=== PATIENT | male | born 1955 | race Caucasian/White ===

== ENCOUNTER 2017-05-01 13:10 | Inpatient (IN) | payer MEDICAID, MEDICARE, OTHER ==
[~2017-05-01] VITALS: Ht 175.3 cm; Wt 89.2 kg
[2017-05-01] MEDS ORDERED: TRAD5TAB PO (13:29)
[2017-05-01] MEDS ORDERED: METF500T4 PO (13:29)
[2017-05-01] MEDS ORDERED: VALS1TAB47 PO (13:29)
[2017-05-01] MEDS ORDERED: HYDR-3716 PO (13:29)
[2017-05-01] MEDS ORDERED: CRES20TA PO (13:29)
[2017-05-01] MEDS ORDERED: CYCL10TA PO (13:29)
[2017-05-01] MEDS ORDERED: TAMSULOSIN (13:29)
[2017-05-01] MEDS ORDERED: MORPHINE 4 MG/ML 1ML SYRINGE As Ordered ONE ×2 (13:57→16:58)
[2017-05-01] MEDS ORDERED: ONDANSETRON 4MG/2ML VIAL (J2405) IV ONE (14:00)
[2017-05-01] MEDS ORDERED: NS 1,000 ML IV ONE (14:00)
[2017-05-01] MEDS: MORPHINE 4 MG/ML 1ML SYRINGE IV PRN ×4 (14:02→19:01)
[2017-05-01 14:19] LABS: BASO % 0.2 % (0.0-1.0); EOS # 0.1 10^3/uL (0.0-0.50); EOS % 0.6 % (0.0-3.0); IMMATURE GRANULOCYTE % 2.2 % (0-0); LYMPH # 1.2 10^3/uL (1.5-4.5); LYMPH % 9.1 % (24.0-44.0); MEAN CORPUSCULAR HEMOGLOBIN 29.1 pg (27.0-33.0); MEAN CORPUSCULAR HGB CONC 33.4 g/dl (32.0-36.5); MEAN CORPUSCULAR VOLUME 87.1 fl (80.0-96.0); MONO # 0.9 10^3/uL (0.0-0.8); MONO % 6.8 % (0.0-5.0); NEUTROPHILS # 10.3 10^3/uL (1.8-7.7); NEUTROPHILS % 81.1 % (36.0-66.0); PLATELET COUNT, AUTOMATED 122 10^3/uL (150-450); RED CELL DISTRIBUTION WIDTH 13.7 % (11.5-14.5); WHITE BLOOD COUNT 12.7 10^3/uL (4.0-10.0)
[2017-05-01 14:30] LABS: INR 0.92
[2017-05-01 14:50] LABS: ALBUMIN 3.4 GM/DL (3.2-5.2); ALBUMIN/GLOBULIN RATIO 1.26 (1.00-1.93); ALKALINE PHOSPHATASE 46 U/L (45-117); ALT/SGPT 55 U/L (12-78); ANION GAP 7 MEQ/L (8-16); AST/SGOT 36 U/L (15-37); BILIRUBIN,DIRECT < 0.1 MG/DL (0.0-0.2); BILIRUBIN,TOTAL 0.3 MG/DL (0.2-1.0); BLOOD UREA NITROGEN 21 MG/DL (7-18); CALCIUM LEVEL 8.9 MG/DL (8.5-10.1); CARBON DIOXIDE LEVEL 23 MEQ/L (21-32); CHLORIDE LEVEL 109 MEQ/L (98-107); CREATININE FOR GFR 0.83 MG/DL (0.70-1.30); GLOMERULAR FILTRATION RATE > 60.0 (>56); GLUCOSE, FASTING 218 MG/DL (70-105); POTASSIUM SERUM 3.7 MEQ/L (3.5-5.1); SODIUM LEVEL 139 MEQ/L (136-145); TOTAL PROTEIN 6.1 GM/DL (6.4-8.2)
--- NOTE | 2017-05-01 15:11 | REP ---
Right wrist four views: There is a comminuted impacted Colle's fracture of the distal radius extending intraarticularly. I suspect the ulnar styloid has a fracture at the its base and the styloid is displaced l. Signed by Donnell Vallejo MD 05/01/2017 03:03 P
--- NOTE | 2017-05-01 15:13 | REP ---
Lumbar spine five views: There are no comparisons. There is mild scoliosis convex right, possibly positional. Vertebral body heights, interspacing alignment are normal except for grade 1 wedge-shaped compression deformity of L1 with a step off along the anterior cortex. This could be an acute compression deformity. No retropulsed fragments are identified. There are small osteophytes anteriorly suggesting mild degenerative disc disease at L2-3 and L3-4. The pedicles, facets and sacroiliac articulations are unremarkable. Impression: Grade 1 anterior wedge shaped compression deformity of the L1 vertebral body, possibly acute. No retropulsed fragments. Mild degenerative disc disease. Signed by Donnell Vallejo MD 05/01/2017 03:05 P
--- NOTE | 2017-05-01 15:15 | REP ---
AP pelvis and right hip: AP pelvis: There is a fracture of the right ischium. I suspect there is a fracture of the medial wall of the acetabulum. No other pelvic fractures identified. Right hip two views: There is no right femoral head or neck fracture or dislocation. . Fractures of the right ischium and medial wall of the right acetabulum are again identified. There are no foreign bodies or calcifications. Signed by Donnell Vallejo MD 05/01/2017 03:07 P
--- NOTE | 2017-05-01 17:09 | REP ---
Lumbar spine CT: On a plain film study earlier today. There was grade 1 wedge compression deformity of the L1 vertebral body. On the CT scan grade 1 wedge compression deformity of L1 is again identified. No retropulsed fragments. There are no posterior element fractures. Vertebral body heights, interspacing alignment otherwise unremarkable. There is degenerative disc disease with vacuum phenomenon at L5 S1. There is no spondylolysis or spondylolisthesis. The facets are normally aligned. There are no focal disc protrusions. There is broad-based circumferential disc bulging at L4-5 and L5 S1. There is osteoarthritis in the posterior facets. Signed by Donnell Vallejo MD 05/01/2017 05:01 P
--- NOTE | 2017-05-01 17:18 | REP ---
CT of the right hip: Axial images are acquired in the reformatted sagittal coronal projections. Comparison is the right hip plain film study earlier today. There is a fracture of the right ischium, similar to the comparison study. There is a nondisplaced fracture of the anterior strut of the right acetabulum. There is also i a nondisplaced fracture of the sacrum on the right extending into the right sacroiliac articulation. There is no fracture of the right femoral head or neck or proximal shaft. Impression: Fracture right ischium. Fracture of the anterior strut of the right acetabulum. Nondisplaced fracture of the sacrum on the right extending into the right sacroiliac joint. Signed by Donnell Vallejo MD 05/01/2017 05:10 P
[2017-05-01] MEDS ORDERED: NS 1,000 ML IV SCH (18:45)
[2017-05-01] MEDS ORDERED: LIDOCAINE 2% MDV 20 ML VIAL As Ordered ONE (18:52)
[2017-05-01] MEDS ORDERED: FLOM5CAP PO (20:52)
[2017-05-01] MEDS ORDERED: GLIM2TA PO (20:52)
[2017-05-01] MEDS ORDERED: CLON0.5T PO (20:52)
[2017-05-01] MEDS ORDERED: MELO15TA4 PO (20:52)
[2017-05-01] MEDS: HumaLOG INSULIN (NovoLOG) PER UNIT SC SCH (21:00)
[2017-05-01] MEDS ORDERED: MORPHINE 4 MG/ML 1ML SYRINGE IV ONE (21:00)
[2017-05-01] MEDS ORDERED: MORPHINE 4 MG/ML 1ML SYRINGE IV PRN (21:15)
[2017-05-01] MEDS ORDERED: clonazePAM 0.5 MG TAB PO PRN (21:15)
[2017-05-01] MEDS ORDERED: MORPHINE 2 MG/ML 1ML SYRINGE IV PRN (21:15)
[2017-05-01] MEDS ORDERED: BISACODYL 5 MG TAB PO PRN (21:30)
[2017-05-01] MEDS ORDERED: ACETAMINOPHEN TAB 650MG DOSE (2X325MG) PO PRN (21:30)
[2017-05-01] MEDS ORDERED: ONDANSETRON 4MG/2ML VIAL (J2405) IV PRN (21:30)
[2017-05-01] MEDS ORDERED: DEXTROSE 50% 50 ML SYRINGE IV PRN (21:45)
[2017-05-01] MEDS ORDERED: GLUCAGON FOR INJ 1 MG VIAL (J1610) SC PRN (21:45)
[2017-05-01] MEDS ORDERED: GLUCOSE 4 GM CHEW TABLET PO PRN (21:45)
[2017-05-01 22:06] LABS: MEAN CORPUSCULAR HEMOGLOBIN 29.4 pg (27.0-33.0); MEAN CORPUSCULAR HGB CONC 32.8 g/dl (32.0-36.5); MEAN CORPUSCULAR VOLUME 89.6 fl (80.0-96.0); PLATELET COUNT, AUTOMATED 112 10^3/uL (150-450); RED CELL DISTRIBUTION WIDTH 13.8 % (11.5-14.5); RETICULOCYTE % 1.8 % (0.5-1.5); WHITE BLOOD COUNT 12.5 10^3/uL (4.0-10.0)
[2017-05-01 22:33] LABS: MAGNESIUM LEVEL 1.6 MG/DL (1.8-2.4)
[2017-05-01 22:45] VITALS: BP 157/92
[2017-05-01] MEDS: VALSARTAN 80 MG TAB (DIOVAN) PO SCH (22:57)
[2017-05-01] MEDS: ROSUVASTATIN 10 MG TAB (CRESTOR) PO SCH (22:57)
[2017-05-01] MEDS: TAMSULOSIN 0.4 MG CAP PO SCH (22:57)
[2017-05-01] MEDS: CYCLOBENZAPRINE 10 MG TAB PO PRN (22:57)
[2017-05-01] MEDS: PERCOCET 5MG/325MG TAB PO PRN (22:58)
[2017-05-01] MEDS: NS 1,000 ML IV SCH (22:58)
[2017-05-02 02:00] VITALS: BP 128/72
[2017-05-02] MEDS ORDERED: MAG SULF 1GM/100ML (MAG RUN) 1 GM in APPROPRIATE DILUENT 1 EA IV ONE (02:30)
[2017-05-02 03:45] LABS: MEAN CORPUSCULAR HEMOGLOBIN 29.5 pg (27.0-33.0); MEAN CORPUSCULAR VOLUME 89.4 fl (80.0-96.0); PLATELET COUNT, AUTOMATED 104 10^3/uL (150-450); RED CELL DISTRIBUTION WIDTH 13.9 % (11.5-14.5); WHITE BLOOD COUNT 11.1 10^3/uL (4.0-10.0)
[2017-05-02 04:08] LABS: ANION GAP 6 MEQ/L (8-16); BLOOD UREA NITROGEN 11 MG/DL (7-18); CALCIUM LEVEL 7.9 MG/DL (8.5-10.1); CARBON DIOXIDE LEVEL 23 MEQ/L (21-32); CHLORIDE LEVEL 110 MEQ/L (98-107); CREATININE FOR GFR 0.62 MG/DL (0.70-1.30); GLOMERULAR FILTRATION RATE > 60.0 (>56); GLUCOSE, FASTING 161 MG/DL (70-105); POTASSIUM SERUM 3.9 MEQ/L (3.5-5.1); SODIUM LEVEL 139 MEQ/L (136-145)
[2017-05-02] MEDS: HEPARIN SOD (PORCINE) 5000 UNITS/ML VIAL SC SCH ×3 (04:46→21:15)
[2017-05-02] MEDS: PERCOCET 5MG/325MG TAB PO PRN ×3 (04:46→17:59)
[2017-05-02 05:22] LABS: MAGNESIUM LEVEL 2.1 MG/DL (1.8-2.4); PERCENT SATURATION 7.2 % (19.7-50.0)
[2017-05-02 06:00] VITALS: BP 105/68
[2017-05-02] MEDS: HumaLOG INSULIN (NovoLOG) PER UNIT SC SCH ×4 (08:32→21:00)
[2017-05-02] MEDS: NS 1,000 ML IV SCH (08:32)
[2017-05-02] MEDS: SENOKOT S TAB PO SCH ×2 (08:33→21:13)
--- NOTE | 2017-05-02 09:16 | HPE ---
DATE OF ADMISSION: 05/01/2017 TIME: Patient was seen around 8:30 p.m. PRIMARY CARE PROVIDER: Julian Baez Jr, MD. CHIEF COMPLAINT: Fall and had fractures. HISTORY OF PRESENT ILLNESS: 61-year-old male with past medical history of type 2 diabetes, hypertension, hyperlipidemia, significant history for coronary artery disease, status post fall from ladder this evening. Per patient, he was trying to fix a roof on his ladder about 7 feet up and his ladder was not leveled; therefore, he fell from the ladder and landed on grass and dirt on his right side. While patient was in the emergency room, it was found that he has a fracture of the right wrist and also fracture of the right hip, as well as compression fracture of L1. Orthopedic surgeon, Dr. Kyle was consulted and has reduced patient's right wrist and recommended patient to be admitted for 1-2 days and in about 1-2 weeks patient should go to [facility] and have a hand surgeon surgically repair patient's right wrist. Otherwise, patient also admits to having significant cardiac history in his family. All of his brothers had heart problems and heart attack. Patient's father also has a pacemaker and coronary artery bypass graft (CABG). Patient himself was really worried; therefore, he was actually scheduled to have a stress test done next Wednesday; however, per patient, he does not have any symptoms. No chest pain, no trouble breathing, no dizziness, no palpitations. Currently, patient only admits to pain in the wrist and lower back. Per patient, it was 8/10. He has been getting morphine in the emergency room. Otherwise, he denies any dizziness, any chest pain, trouble breathing, abdominal pains, nausea, vomiting, diarrhea, constipation, problem with urination. Denies any loss of sensations in the extremities. Denies any numbness or tingling at this point. ALLERGIES: No known drug allergies. HOME MEDICATIONS: Including: - acetaminophen/hydrocodone one tablet by mouth five times daily - clonazepam 0.5 mg by mouth twice a day as needed - cyclobenzaprine 10 mg by mouth three times a day as needed - glimepiride 2 mg by mouth twice a day with meals - Tradjenta 5 mg by mouth daily - meloxicam 15 mg by mouth daily - metformin hydrochloride 2000 mg by mouth daily - Crestor 20 mg by mouth daily - Flomax 0.8 mg by mouth daily - valsartan 160 mg one tablet by mouth daily PAST MEDICAL HISTORY: Includin. Hypertension. 2. Type 2 diabetes not on insulin. 3. Chronic pain. 4. Hyperlipidemia. 5. BPH. PAST SURGICAL HISTORY: Includin. Bilateral rotator cuff repair. 2. Umbilical hernia repair. SOCIAL HISTORY: Patient admits to smoking one pack per day for 40 years. Denies any drinking or recreational drug use. FAMILY HISTORY: Patient's entire family, all his brothers and father had heart disease, especially at young age, before 50s. Patient is actually scheduled to have a stress test done due to he was worried due to his significant family history. REVIEW OF SYSTEMS: GENERAL: Patient denies any recent weight changes, any recent traveling, sick contact, fever or chills, dizziness. HEENT: Denies any changes with vision, smell, hearing or taste. CARDIOVASCULAR: Denies any chest pain, trouble breathing, however, he does have significant family history for coronary artery disease. PULMONARY: Denies any trouble breathing. Denies any cough. Denies any sputum. GASTROINTESTINAL (GI): Denies any abdominal pains, nausea, vomiting, diarrhea, constipation. GENITOURINARY (): Denies any problem with urination. Denies any burning on urination. Denies any blood in the urine or stool. MUSCULOSKELETAL: Admits to chronic pain. HEMATOLOGY/ONCOLOGY: Denies any ease of bruising or any bleeding anywhere. Denies any night sweats or weight changes. ENDOCRINE: Denies any heat or cold intolerance. Denies any polydipsia, polyuria. However, patient does have diabetes, not on insulin. NEUROLOGICAL: Denies any weakness on any side of his body. Denies any change of sensations or any dizziness. PSYCHIATRIC: Patient does have a history of anxiety, however, patient denies any problems right now. PHYSICAL EXAMINATION: VITAL SIGNS: Temperature 97.9, pulse 94, respirations 18, blood pressure 146/79, oxygen was saturating at 96% on room air. GENERAL: Patient is a well-developed, well-nourished, middle-aged male who looks slightly older than his stated age. HEENT: Normocephalic, atraumatic. Extraocular motor intact. Mucosa moist. NECK: Supple. No neck lymphadenopathy. CARDIOVASCULAR: Regular rate and rhythm, normal S1, S2. No murmurs. LUNGS: Clear to auscultate bilaterally. No wheezes, rales, rhonchi. ABDOMEN: Positive bowel sounds, soft, nontender, nondistended. No peritoneal signs. No ecchymosis. EXTREMITIES: Patient's right wrist is in a cast. Patient's fingers were mobile. Sensations were intact. No significant cyanosis. Fingers were warm to touch. Lower extremities show muscle strength was 5/5. Deep tendon reflexes were intact. Sensation was intact. Dorsalis pedis and posterior tibialis pulses were intact. Patient's right hip was only slightly tender to palpation. Lower back was moderately tender to palpation. Otherwise, skin was warm and dry. NEUROLOGIC: Cranial nerves II-XII intact. No focal neurological deficit noted. LABORATORIES: WBC 12.7, hemoglobin 12, hematocrit 35.9 with platelet count of 122, MCV 87.1. Sodium 139, potassium 3.7, chloride 109, bicarbonate 23, anion gap 7, BUN 21, creatinine 0.83, GFR greater than 60, fasting glucose 218, calcium 8.9, total bilirubin 0.3, direct bilirubin less than 0.1, AST 36, ALT 55, alkaline phosphatase 46, albumin 3.4. Coagulation panel shows PT 12.4, INR 0.92, PTT 25. Patient had a right wrist x-ray, shows comminuted impacted Colles fracture of the distal radius extending intra-articularly, also ulnar styloid fracture at the base. PA lateral right hip x-ray shows fractures of right ischium and medial wall of right acetabulum. Lumbar spine x-ray shows grade 1 anterior wedge shaped compression deformity of L1 vertebral body and mild degenerative disc disease. Patient also had a CT of lumbar spine without contrast, showed grade 1 wedge compression deformity of L1 vertebral body, degenerative disc disease with vacuum phenomena at L5-S1, broad based circumferential disc bulging at L4-5 and L5-1, osteoarthritis in the posterior facets. Patient had a right hip CT, which shows fracture of the right ischium, fracture of anterior strut of the right acetabulum, nondisplaced fracture of sacrum on the right extending into the right sacroiliac joint. EKG has been ordered. It is pending. Magnesium is currently pending. Repeat CBC is pending. Cardiac enzymes are currently pending. ASSESSMENT AND PLAN: 61-year-old male with a past medical history of hypertension, hyperlipidemia, type 2 diabetes, BPH, anxiety, chronic pain, presented with: 1. Fall off the ladder and landed on the right side on the ground from 7 feet up. Patient had a fracture of the right hip, sacrum, L1 vertebral body, right wrist. Orthopedic surgeon was consulted and saw the patient in the emergency room. Dr. Kyle has performed a closed reduction of the right wrist and recommended patient to see a hand surgeon outpatient in 1-2 weeks. At this point, will continue supportive management and control patient's pain while patient is in the hospital. Orthopedic surgery has been consulted and they will see the patient again tomorrow morning. At this point, will control pain with morphine 4 mg every 4 hours, as well as 2 mg every 2 hours for breakthrough in addition to Percocet two tablets by mouth every 6 hours. Patient's broken wrist should be elevated. Will perform neurologic checks every 4 hours for any signs of numbness or poor perfusion or any compartment syndrome. Will continue to trend complete blood counts (CBCs) every 6 hours in case patient has any occult bleeding in the hip and will continue cardiac telemetry due to patient's significant family risk for heart disease. 2. High risk for coronary artery disease per family history, also risk factors including smoking, diabetes, hyperlipidemia. All patient's brothers and patient's father had heart disease at young age, around 50s. Patient was scheduled to have a stress test done next Wednesday; however, patient likely cannot go due to patient having a hard time walking on the treadmill with fracture. Otherwise, will obtain EKG and cardiac markers while patient is in the emergency room due to his cardiac risk is likely increased due to the trauma and continue to monitor. 3. History of type 2 diabetes. All diabetic medication has been on hold. Patient currently has been started on fingersticks and insulin sliding scale. Continue to monitor. 4. History of hypertension. Due to trauma and patient is becoming anemic, patient's blood pressure medication has been reduced from valsartan 160 mg to 80 mg with hold parameters and will continue to monitor patient's blood pressure closely and will adjust as needed. 5. Hyperlipidemia. Continue home statin. 6. Anemia. Unclear whether this is chronic or due to trauma. Patient's hemoglobin is currently at 12. Reticulocyte count has been ordered. Will followup. If comes back not elevated, we are considering ordering iron panel study and B12, folate. Fecal occult blood has been obtained as well. 7. Thrombocytopenia with platelets of 122. Possibly due to consumption from trauma. Will continue to monitor. 8. Anxiety. Continue home medication. 9. BPH. Continue home medication. 10. Chronic pain. Patient is currently on pain control for the trauma and fractures. 11. Deep venous thrombosis (DVT) prophylaxis with heparin 5000 units subcutaneously every 8 hours per orthopedic recommendation. 12. Fluid, electrolytes, and diet. Continue patient on normal saline at a rate of 100 mL/h due to trauma and possible occult blood loss. Patient's electrolytes are at goal currently. Will continue to monitor. Patient will be started on clear liquid diet initially and may advance as tolerated in the morning. DISPOSITION: Patient has trauma and fracture due to fall from the ladder. Orthopedic surgery has been consulted. Will follow their recommendations. Continue physical therapy. Continue pain control and monitor for any occult bleeding. Patient has been discussed with attending doctor, Dr. Grissom. My preceptor for this patient encounter was Dr. Ananth Grissom. The preceptor was physically present in the building during the encounter and was fully available as needed. All aspects of the patient interview, examination, medical decision making process, and medical care plan development were reviewed and approved by the preceptor. The preceptor is aware and concurs with the plan as stated in the body of this note and will attest to such by his/her co-signature.
--- NOTE | 2017-05-02 09:17 | REP ---
Right wrist two views post reduction: The comminuted colleagues fracture of the distal radius has been satisfactorily reduced and is main satisfactory position alignment with plaster splint. The ulnar styloid process is obscured and cannot be identified. Signed by Donnell Vallejo MD 05/02/2017 07:59 A
--- NOTE | 2017-05-02 09:17 | REP ---
Portable chest, 05:45 p.m.: There are no comparisons. There is an incomplete inspiratory effort with under aeration of the lung domingo. There are no focal infiltrates or effusions. Cardiac size appears mildly enlarged. The oscar, mediastinum, and bony thorax are unremarkable. Impression: Incomplete inspiratory effort. No Signed by Donnell Vallejo MD 05/02/2017 08:02 A
--- NOTE | 2017-05-02 09:17 | REP ---
Pelvis five views: There is a nondisplaced fracture of the right ischium. There is a nondisplaced fracture of the superior ramus of the right pubic symphysis proximally near the right acetabulum. Sacroiliac articulations are unremarkable. The right and left hip articulations are unremarkable. Signed by Donnell Vallejo MD 05/02/2017 07:58 A
--- NOTE | 2017-05-02 09:52 | CR ---
DATE OF CONSULTATION: 05/02/2017 CHIEF COMPLAINT: Multiple injuries status post 7 foot fall. HISTORY OF PRESENT ILLNESS: Yandel Majano is a 61-year-old male with a history of diabetes, hypertension, hyperlipidemia, who was working on his chimney when he had a fall approximately 7 feet off the ground. The patient was seen in the emergency room and found to have a right displaced, severely comminuted intraarticular distal radius fracture, a mild L1 mild compression fracture, and LC1 pelvis fracture. He denies any bowel or bladder incontinence. The patient is right hand dominant. At the time of his visit in the emergency room, the patient had pain that was controlled with pain medications. He underwent a closed reduction of his right wrist fracture under hematoma block, by myself and his pain in his right wrist was improved significantly after the reduction and a sugar-tong splint were applied. The patient continued to have pain in his back and was admitted for pain control and physical therapy. For further information, please refer to my handwritten note from the emergency room (ER). PAST MEDICAL HISTORY: 1. Hearing loss. 2. Heart murmur. 3. Hypercholesterolemia. 4. Hyperlipidemia. 5. Hypertension. 6. History of pancreatitis in 2001. 7. Hemorrhoids. 8. Degenerative disc disease. 9. Type 2 diabetes. PAST SURGICAL HISTORY: 1. Ventral hernia repair in 2006. 2. Bilateral rotator cuff surgeries. SOCIAL HISTORY: The patient does have a 40 pack-year smoking history. He is and lives alone. ALLERGIES: NO KNOWN DRUG ALLERGIES. PHYSICAL EXAMINATION: GENERAL: Well appearing, alert and oriented, no acute distress, answers questions appropriately. MUSCULOSKELETAL: Right wrist: Splint is clean, dry and intact. Patient is grossly able to wiggle his fingers with minimal pain. He has normal sensation to light touch in the medial, ulnar and radial distribution. He denies any numbness in the median, radial or ulnar nerve distributions. He has brisk capillary refill in his fingertips. He does not have pain with passive stretch of his fingers. BILATERAL LOWER EXTREMITIES: Sensation intact to light touch in the L1 through S1 distributions. He has intact iliopsoas, quadriceps, hamstring, tibialis anterior, EHL, FHL, gastrocnemius. Toes are warm and well perfused with brisk capillary refill. No pain with compression of the pelvis. SPINE: Mild tenderness to palpation in the upper L spine. No deformity. PULMONARY: Regular and nonlabored breathing. CARDIAC: Regular dorsalis pedis pulse bilaterally. IMAGIN. Post reduction wrist radiographs: The fracture shows improved and satisfactory alignment of the right distal radius fracture. 2. Pelvis: Five view pelvis is reviewed shows a nondisplaced sacral fracture, high ramus fracture, and inferior ramus fracture consistent with LC1 pelvis type injury. All fractures are non or very minimally displaced. 3. CT scan of the right hip again are reviewed and are nondisplaced sacral fracture, high ramus fracture, and inferior ramus fracture. IMPRESSION: 1. Right comminuted, intraarticular distal radius fracture in satisfactory alignment status post closed reduction in the emergency room under hematoma block. 2. LC1 pelvis injury. 3. L1 compression fracture. PLAN: 1. The patient should keep his right upper extremity elevated at all times. This will significantly help with his pain control and will prepare him for surgery, which he will need some time in the next 2 weeks. The patient should followup with Dr. Donis at [facility] for surgical planning. This is a severely comminuted intraarticular fracture that would best be served by a hand surgeon who performs multiple of these surgeries. Patient understands this and is agreeable to go to [facility] for his care for his distal radius fracture. 2. LC1 pelvis fractures: The patient may be weightbearing as tolerated using a walker. He may platform weight-bear given his distal radius fracture. He should followup with one of our physician assistants at [facility] at the end of this week for repeat x-ray of his pelvis, to ensure there has been no displacement of his fractures. Should he have increased pain after working with physical therapy and putting weight on the right lower extremity, the radiographs should be repeated earlier. 3. L1 compression fracture: The patient will be given a corset, which he can wear when he is out of bed for comfort. He is not required to wear this at all times. Again, he can followup with one of our physician assistants at [facility] at the end of this week for repeat x-ray. Patient is neurovascularly intact in his bilateral lower extremities and had no difficulty bowel or bladder difficulty since the injury. His CT scan of his spine shows a very minimal compression deformity at L1 with no other injuries and no compression whatsoever of the spinal cord. Should there be any issues with this patient, I would be happy to see him sooner. I will follow him while he is in the hospital. Once his pain is controlled, it would be reasonable for him to be discharged. His hematocrit has been stable since admission and overall the patient is much more comfortable this morning than he was when I saw him in the emergency room last night. MONA
--- NOTE | 2017-05-02 11:30 | ECGEPIP ---
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
[2017-05-02 14:00] VITALS: BP 108/67
--- NOTE | 2017-05-02 16:43 | IPN ---
DATE: 05/02/2017 SUBJECTIVE: The patient reports that his pain is under control. He denies any chest pain, fevers, chills, nausea, vomiting or diarrhea. OBJECTIVE: VITAL SIGNS: Temperature 96, pulse 78, respiratory rate 18, blood pressure 105/68, oxygen saturation 94% on room air. GENERAL: He is a pleasant man sitting up in bed. He does not appear to be in any acute distress. HEENT: Cranial nerves II-XII are grossly intact. He has moist mucous membranes. CARDIOVASCULAR EXAM: S1, S2, regular. RESPIRATORY EXAM: Clear. ABDOMINAL EXAM: Benign. EXTREMITIES: His right distal upper extremity is casted. His dressing is clean, dry and intact and elevated. No clubbing, cyanosis, or edema. Good sensation intact throughout. LABORATORY STUDIES: WBC 11.1, hemoglobin 11.1, platelet count 104. Chemistry panel: Sodium 139, potassium 3.9, chloride 110, bicarbonate 23, BUN 11, creatinine 0.6, magnesium 2.1, iron 18. IMAGING: The patient had a pelvis x-ray that revealed a nondisplaced fracture of the right ischium, nondisplaced fracture of the superior ramus , comminuted Colles fracture of the distal radius, satisfactorily reduced. A chest x-ray that revealed incomplete inspiratory effort. A CT of the extremity that revealed a fracture of right ischium, a fracture of the anterior strut of the right acetabulum, a nondisplaced fracture of the sacrum on the right extending into the right sacroiliac joint. He had a lumbar spine CT that revealed grade 1 wedge compression deformity of the L1 vertebral body. No retropulsed fragments. ASSESSMENT AND PLAN: This is a 61-year-old man status post trauma from a traumatic fall from a roof where he was working on a ladder, with a right comminuted intraarticular distal radius fracture, LC1 pelvis injury, nondisplaced fracture, L1 compression fracture. PROBLEMS: 1. Traumatic fall with multiple fractures. The patient has been seen by Dr. Kyle of orthopedic surgery. She has reduced his right wrist fracture and has arranged for appropriate followup for more definitive surgical interventions by a hand surgeon in [place]. She has also suggested followup with their orthopedic group for his pelvic fractures. It was recommended that he use a corset while out of bed. At the present time, physical therapy is not working with him as he does not have this corset. His pain does appear to be controlled by oral medications. Once cleared by physical therapy, he could likely be discharged home. All management for his reason of hospitalization is as per orthopedic surgery. 2. Diabetes. We are holding his home medications and have him on a sliding scale of insulin while in the hospital. 3. Hypertension. His valsartan is currently on hold. Restart if he were to become hypertensive. 4. Anxiety. He was continued on his home clonazepam. 5. Muscle spasms. Continue his cyclobenzaprine as needed that he takes at home. 6. Dyslipidemia. Continue his Crestor, which he takes at home. 7. BPH. Continue his tamsulosin, which he takes at home. 8. Anemia. Consider outpatient followup through his primary care provider, likely iron deficiency anemia. DISPOSITION: Pending physical therapy (PT) clearance.
[2017-05-02 18:00] VITALS: BP 105/67
[2017-05-02] MEDS: VALSARTAN 80 MG TAB (DIOVAN) PO SCH (21:00)
[2017-05-02] MEDS: TAMSULOSIN 0.4 MG CAP PO SCH (21:11)
[2017-05-02] MEDS: ROSUVASTATIN 10 MG TAB (CRESTOR) PO SCH (21:13)
[2017-05-02 22:00] VITALS: BP 127/69
[2017-05-03 02:00] VITALS: BP 128/70
[2017-05-03] MEDS: PERCOCET 5MG/325MG TAB PO PRN ×4 (02:05→20:55)
[2017-05-03] MEDS: HEPARIN SOD (PORCINE) 5000 UNITS/ML VIAL SC SCH (05:40)
[2017-05-03 06:00] VITALS: BP 122/64
[2017-05-03 07:24] LABS: MEAN CORPUSCULAR HEMOGLOBIN 29.1 pg (27.0-33.0); MEAN CORPUSCULAR HGB CONC 32.3 g/dl (32.0-36.5); MEAN CORPUSCULAR VOLUME 89.9 fl (80.0-96.0); RED CELL DISTRIBUTION WIDTH 13.9 % (11.5-14.5); WHITE BLOOD COUNT 8.1 10^3/uL (4.0-10.0)
[2017-05-03] MEDS: HumaLOG INSULIN (NovoLOG) PER UNIT SC SCH ×4 (07:30→20:53)
[2017-05-03 07:35] LABS: ANION GAP 8 MEQ/L (8-16); BLOOD UREA NITROGEN 8 MG/DL (7-18); CALCIUM LEVEL 8.2 MG/DL (8.5-10.1); CARBON DIOXIDE LEVEL 24 MEQ/L (21-32); CHLORIDE LEVEL 109 MEQ/L (98-107); CREATININE FOR GFR 0.59 MG/DL (0.70-1.30); GLOMERULAR FILTRATION RATE > 60.0 (>56); GLUCOSE, FASTING 134 MG/DL (70-105); MAGNESIUM LEVEL 1.9 MG/DL (1.8-2.4); POTASSIUM SERUM 3.9 MEQ/L (3.5-5.1); SODIUM LEVEL 141 MEQ/L (136-145)
[2017-05-03 08:00] VITALS: BP 125/69
[2017-05-03 08:16] LABS: IMMATURE PLATELET FRACTION % 18.3 % (0.0-10.9); PLATELET COUNT, AUTOMATED 81 10^3/uL (150-450); PLATELET F 81
[2017-05-03] MEDS: MIRALAX *UNIT DOSE* 17GM PACKET PO SCH (10:46)
[2017-05-03] MEDS: SENOKOT S TAB PO SCH ×2 (10:46→20:52)
[2017-05-03] MEDS: MOM 30ML SUSPENSION UDC PO SCH (10:46)
--- NOTE | 2017-05-03 11:42 | IPN ---
DATE OF SERVICE: 05/03/2017 SUBJECTIVE: The patient tells me that he feels significant pain when moving around in bed. Resting he does not feel any pain. He denies fevers, chills, shortness of breath, nausea, vomiting, diarrhea. OBJECTIVE: Vital signs: Temperature 97.3, pulse 72, respiratory rate 16, blood pressure 125/69, oxygen saturation 93% on room air. General: He is a pleasant man sitting up in bed. He does not appear to be in any acute distress whatsoever. HEENT: Cranial nerves II-XII are grossly intact. He has moist mucous membranes. No elevation of CVP. Cardiovascular exam: S1, S2 regular. Respiratory exam: Clear. Abdominal exam: Benign. Extremities: His distal right upper extremity is bandaged. It is clean, dry and intact. It is elevated. There is no clubbing, cyanosis or edema. He has good sensation throughout. LABORATORY STUDIES: WBC 8.1, hemoglobin 10.7, platelet count 81. Chemistry panel: Sodium 141, potassium 3.9, chloride 109, bicarbonate 24, BUN 8, creatinine 0.5. No new imaging. ASSESSMENT AND PLAN: 61-year-old man status post traumatic fall from ladder where he was working on a roof with right comminuted intra-articular distal radius fracture, pelvic injury nondisplaced, fracture L1 compression fracture. PROBLEMS: 1. Traumatic fall with multiple fractures. Dr. Kyle of orthopedic surgery help is greatly appreciated. Physical therapy did not work with the patient yesterday stating that they were not sure if he needed a brace and that we will defer to orthopedic surgery if he needs a brace corset prior to working with physical therapy or occupational therapy. Patient did express some wish to be transferred to have his wrist surgery. He would like to have wrist surgery completed sooner rather than later. Will refer to orthopedic surgery. If they feel this is needed, they can arrange for this transfer by contacting orthopedic providers. Otherwise followup as per orthopedic surgeries previous recommendations. 2. Diabetes. He is on sliding scale while in hospital. 3. Hypertension. His losartan is on hold. Restart if needed. 4. Anxiety, continue on clonazepam. 5. Muscle spasms and chronic pain. Continue with cyclobenzaprine which he takes at home. 6. Dyslipidemia. Continue with Crestor he takes at home. 7. Benign prostatic hypertrophy (BPH). Continue with tamsulosin he takes at home. 8. Anemia may be an element of iron deficiency. Consider starting ferrous sulfate upon discharge. I wanted to start it at this time but he did not have an urgent need for it and he is likely going to be somewhat constipation with the narcotic medication he is receiving. 9. Tic. The patient does have very tiny tic identified on his left thorax. He is unsure how long it has been there. There is no surrounding target rash. It was removed and sent to pathology for identification. If it does return concerning for potential Lyme, could consider treating either empirically or for the time being we will hold off. DISPOSITION: Pending physical therapy (PT) and orthopedic surgery.
[2017-05-03 12:36] LABS: FOLATE 6.8 NG/ML (>5.4)
[2017-05-03 14:00] VITALS: BP 120/64
[2017-05-03] MEDS: CYCLOBENZAPRINE 10 MG TAB PO PRN (20:06)
[2017-05-03] MEDS: TAMSULOSIN 0.4 MG CAP PO SCH (20:51)
[2017-05-03] MEDS: ROSUVASTATIN 10 MG TAB (CRESTOR) PO SCH (20:51)
[2017-05-03 20:52] VITALS: BP 123/69
[2017-05-03] MEDS: VALSARTAN 80 MG TAB (DIOVAN) PO SCH (20:52)
[2017-05-03 22:00] VITALS: BP 123/69
[2017-05-04] MEDS: PERCOCET 5MG/325MG TAB PO PRN ×3 (02:58→14:58)
[2017-05-04 06:00] VITALS: BP 115/66
[2017-05-04 06:47] LABS: MEAN CORPUSCULAR HEMOGLOBIN 29.1 pg (27.0-33.0); MEAN CORPUSCULAR HGB CONC 32.4 g/dl (32.0-36.5); MEAN CORPUSCULAR VOLUME 89.8 fl (80.0-96.0); RED CELL DISTRIBUTION WIDTH 13.7 % (11.5-14.5); WHITE BLOOD COUNT 8.2 10^3/uL (4.0-10.0)
[2017-05-04 06:49] LABS: PLATELET COUNT, AUTOMATED 73 10^3/uL (150-450)
[2017-05-04] MEDS ORDERED: PERC5TAB12 PO (06:50)
[2017-05-04 07:11] LABS: ANION GAP 4 MEQ/L (8-16); BLOOD UREA NITROGEN 11 MG/DL (7-18); CALCIUM LEVEL 8.3 MG/DL (8.5-10.1); CARBON DIOXIDE LEVEL 29 MEQ/L (21-32); CHLORIDE LEVEL 105 MEQ/L (98-107); CREATININE FOR GFR 0.67 MG/DL (0.70-1.30); GLOMERULAR FILTRATION RATE > 60.0 (>56); GLUCOSE, FASTING 194 MG/DL (70-105); MAGNESIUM LEVEL 1.8 MG/DL (1.8-2.4); POTASSIUM SERUM 4.1 MEQ/L (3.5-5.1); SODIUM LEVEL 138 MEQ/L (136-145)
[2017-05-04] MEDS: HumaLOG INSULIN (NovoLOG) PER UNIT SC SCH ×2 (07:30→12:53)
[2017-05-04] MEDS ORDERED: SENN1TAB2 PO (08:05)
[2017-05-04] MEDS: SENOKOT S TAB PO SCH (08:24)
[2017-05-04] MEDS: MOM 30ML SUSPENSION UDC PO SCH (08:24)
[2017-05-04] MEDS: MIRALAX *UNIT DOSE* 17GM PACKET PO SCH (08:24)
--- NOTE | 2017-05-04 20:14 | DSES ---
DATE OF ADMISSION: 05/01/2017 DATE OF DISCHARGE: 05/04/2017 PRIMARY CARE PROVIDER: Dr. Julian Baez ORTHOPEDIC SURGEON: Dr. Soto. FINAL DIAGNOSIS: Traumatic fall with multiple fractures, right comminuted intraarticular distal radius fractures with satisfactory alignment status post closed reduction in the emergency room with underlying hematoma, pelvic injury, L1 compression fractures, diabetes, hypertension, anxiety, muscle spasm, dyslipidemia, benign prostatic hyperplasia (BPH), iron deficiency anemia, tic. HISTORY OF PRESENT ILLNESS: This is a 61 -year-old male with underlying medical history of type 2 diabetes, hypertension, dyslipidemia, coronary artery disease, status post fall from ladder. As per patient, patient was trying to fix a roof on his ladder about 7 feet up and his ladder was not leveled and therefore he fell from the ladder and landed on grass and dirt on his right side and while he was in the emergency room it was found that he has a fracture of the right wrist and also fracture of the right hip, as well as compression fracture of L1. Orthopedic surgeon Dr. Kyle was consulted and patient's right wrist factor was reduced in the emergency room. Patient was admitted for pain control and also physical therapy. HOSPITAL COURSE: The patient was admitted to the hospital, pain medication was administered, physical therapy was consulted, orthopedic was also consulted. Patient's medication was continued. Insulin was given for diabetes while in the hospital. Bracing was provided. Currently patient passed physical therapy. Case was discussed with orthopedics, as per orthopedic team patient clear for discharge for further care as outpatient. Patient will need, as per orthopedics, referral to [facility] for definitive treatment of wrist fractures. PHYSICAL EXAM: Vital signs: Temperature 98.5, pulse 66, respirations 15, blood pressure 115/66, pulse ox 92% on room air. GENERAL: Patient alert, comfortable in no acute distress. HEENT: Normocephalic, atraumatic. PULMONARY: Bilaterally clear. CARDIAC: Regular, S1, S2. ABDOMEN: Soft, non-tender. Positive bowel sounds. EXTREMITIES: Right distal extremity bandaged and immobilized, clan dry and intact. No clubbing, cyanosis or edema. LABORATORY DATA: WBC 8.2, H H 10/3/31.8. Platelets 73. Chemistry: Sodium 138, potassium 4.1, chloride 105, bicarbonate 29, BUN 11, creatinine 0.6. DISCHARGE MEDICATIONS: - Percocet 5/325 by mouth every 4 hours as needed - Senna plus one tablet by mouth twice a day PATIENTS HOME MEDICATIONS: - Clonazepam 0.5 mg by mouth twice a day as needed - cyclobenzaprine 10 mg by mouth three times a day as needed - glimepiride 2 mg by mouth twice a day - Tradjenta 5 mg by mouth daily - Mobic 50 mg by mouth daily - metformin 2000 mg by mouth daily - Crestor 20 mg by mouth daily - Flomax 0.8 mg by mouth daily - valsartan 160 mg by mouth daily Patient instructed to follow up with orthopedic group Dr. Babcock as well as [facility] for further hand surgeon for follow up of patient's fracture. Home with physical therapy and services. Return to the hospital if symptoms worsen.
--- NOTE | 2017-05-11 18:04 | REP ---
C-ARM VIEWS RIGHT WRIST: Two C-ARM views of the right wrist were performed. Fracture distal radius is noted. Structures are grossly well aligned. 11 seconds of fluoroscopy time was utilized. Signed by Donnell Wade MD 05/13/2017 02:33 P
== END 2017-05-04 16:05 | disposition home health service (06) | DRG 562 ==
LOC: M ED 13:10 → M ED INP 20:15 → M MS5PR 22:30
PROVIDERS: ADMIT Internal Medicine; ATTEND Hospitalist
PROC: 0PSHXZZ Reposition Right Radius, External Approach (ICD-10-PCS; principal; 2017-05-02)
DX: S52.611A Displaced fracture of right ulna styloid process, initial encounter for closed fracture (principal); S32.401A Unspecified fracture of right acetabulum, initial encounter for closed fracture; S32.501A Unspecified fracture of right pubis, initial encounter for closed fracture; S32.601A Unspecified fracture of right ischium, initial encounter for closed fracture; S32.10XA Unspecified fracture of sacrum, initial encounter for closed fracture; S32.019A Unspecified fracture of first lumbar vertebra, initial encounter for closed fracture; S52.531A Colles' fracture of right radius, initial encounter for closed fracture; W11.XXXA Fall on and from ladder, initial encounter; Y92.009 Unspecified place in unspecified non-institutional (private) residence as the place of occurrence of the external cause; E11.9 Type 2 diabetes mellitus without complications; E78.5 Hyperlipidemia, unspecified; F41.9 Anxiety disorder, unspecified; N40.0 Benign prostatic hyperplasia without lower urinary tract symptoms; D50.9 Iron deficiency anemia, unspecified; I25.10 Atherosclerotic heart disease of native coronary artery without angina pectoris; I10 Essential (primary) hypertension; Z79.899 Other long term (current) drug therapy; F17.200 Nicotine dependence, unspecified, uncomplicated; D69.6 Thrombocytopenia, unspecified; G89.29 Other chronic pain; M62.838 Other muscle spasm